=== PATIENT | male | born 1965 | race Caucasian/White ===

== ENCOUNTER 2019-10-07 13:21 | Emergency (ER) | payer MEDICAID ==
[~2019-10-07] VITALS: Ht 177.8 cm; Wt 126.0 kg
--- NOTE | 2019-10-07 13:26 | NUR ---
PATIENT BROUGHT IN BY EMS [facility] WITH CHIEF COMPLAINT OF BILAT LEG PAIN, SWELLING, FLUID RETERNTION, 20 LB GAIN IN 4 DAYS. PER PATIENT HE WAS RECENTLY AT [facility] FOR GI BLEED. THE PATIENT IS ALERT, ORIENTED, WARM AND DRY.
[2019-10-07] MEDS ORDERED: OXYcodone IR 5MG TABLET ONE (14:14)
--- NOTE | 2019-10-07 14:17 | NUR ---
BREAK RN, PT MEDICATED PER JAN. LAB AT BEDSIDE FOR LABS
[2019-10-07] MEDS ORDERED: LIDOCAINE 1%, 10ML ONE (14:24)
[2019-10-07] MEDS ORDERED: OXYcodone IR 5MG TABLET PO ONE (14:30)
[2019-10-07 14:50] LABS: ALANINE AMINOTRANSFERASE 26 U/L (12-78); ALBUMIN 3.1 g/dL (3.4-5.0); ANION GAP 8 mmol/L (5-15); CHLORIDE 102 mmol/L (98-107); CREATININE 1.89 mg/dL (0.7-1.3)
[2019-10-07 14:52] LABS: ALKALINE PHOSPHATASE 165 U/L (45-117); BILIRUBIN,TOTAL 1.7 mg/dL (0.2-1.0); TOTAL PROTEIN 7.2 g/dL (6.4-8.2)
[2019-10-07 15:30] LABS: BASOPHILS # (AUTO) 0.01 x10^3/uL (0-0.1); BASOPHILS % (AUTO) 0 % (0-1); EOSINOPHILS # (AUTO) 0.27 x10^3/uL (0-0.4); EOSINOPHILS % (AUTO) 3 % (1-7); LYMPHOCYTES % (AUTO) 10 % (22-44); MD SCAN; MEAN CORPUSCULAR HEMOGLOBIN 34.8 pg (27.5-34.5); MEAN CORPUSCULAR HGB CONC 33.4 g/dL (33.2-36.2); MEAN CORPUSCULAR VOLUME 104.1 fL (81-97); MEAN PLATELET VOLUME 8.2 fL (7.4-10.4); MONOCYTES # (AUTO) 0.75 x10^3/uL (0.2-0.8); MONOCYTES % (AUTO) 7 % (2-9); NEUTROPHILS # (AUTO) 8.09 x10^3/uL (1.8-6.8); NEUTROPHILS % (AUTO) 80 % (42-75); PLATELET COUNT 94 x10^3/uL (130-400); RED BLOOD COUNT 3.09 x10^6/uL (4.38-5.82); RED CELL DISTRIBUTION WIDTH 16.9 % (9.4-14.8)
--- NOTE | 2019-10-07 15:40 | NUR ---
CARE FOR DC ONLY PROVIDED. PT WITH QUESTION ABOUT RECEIVEING ALBUMIN AFTER 6L REMOVED AFTER PARACENTESIS. DR HOUSE AT BEDSIDE TO DISCUSS WITH PT. PT TO RECEIVE ALBUMIN. PRIMARY RN NOTIFIED.
[2019-10-07] MEDS ORDERED: ALBUMIN HUMAN 25% 100 ML IV ONE (16:00)
[2019-10-07 16:27] VITALS: BP 108/45
--- NOTE | 2019-10-07 17:22 | NUR ---
DISCHARGE INSTRUCTIONS REVIEWED.
== END 2019-10-07 17:26 | disposition home or self-care (01) ==
LOC: ED 17:20
DX: K70.31 Alcoholic cirrhosis of liver with ascites (principal); E87.1 Hypo-osmolality and hyponatremia; E11.9 Type 2 diabetes mellitus without complications
CPT/HCPCS: 36415; 49083; 80053; 85025; 96365; 99285; J3490; P9047

== ENCOUNTER → 2019-10-29 | Outpatient (CLI) | payer MEDICAID ==
[~2019-10-29] MED LIST: ALBUMIN HUMAN 25%, 25GM/100ML ONE; LIDOCAINE 1%, 10ML ONE
== END | disposition home or self-care (01) ==
LOC: RAD 11:32
DX: K70.31 Alcoholic cirrhosis of liver with ascites (principal)
CPT/HCPCS: 49083; J3490; P9047